=== PATIENT | male | born 1995 | race Caucasian/White ===

== ENCOUNTER 2018-11-09 00:06 | Emergency (ER) | payer MEDICAID ==
[~2018-11-09] VITALS: Ht 190.5 cm; Wt 108.6 kg
[2018-11-09 00:09] VITALS: BP 142/80
== END 2018-11-09 02:00 | disposition home or self-care (01) ==
LOC: ED 01:54
DX: J02.8 Acute pharyngitis due to other specified organisms (principal); B97.89 Other viral agents as the cause of diseases classified elsewhere; R05 Cough; F17.200 Nicotine dependence, unspecified, uncomplicated
CPT/HCPCS: 87081; 87880; 99283

== ENCOUNTER 2019-08-01 09:51 | Emergency (ER) | payer MEDICAID ==
[~2019-08-01] VITALS: Ht 193 cm; Wt 102.6 kg
[2019-08-01 09:52] VITALS: BP 134/72
--- NOTE | 2019-08-01 10:28 | NUR ---
To radiology for xray
[2019-08-01] MEDS ORDERED: IBUPROFEN 800 MG TABLET PO ONE (10:30)
[2019-08-01] MEDS ORDERED: IBUPROFEN 200 MG TABLET ONE (10:47)
[2019-08-01 10:52] LABS: RAPID INFLUENZA A Negative (Negative); RAPID INFLUENZA B Negative (Negative)
--- NOTE | 2019-08-01 10:53 | NUR ---
medicated per emar
== END 2019-08-01 11:26 | disposition home or self-care (01) ==
LOC: ED 11:20
DX: J06.9 Acute upper respiratory infection, unspecified (principal); R19.7 Diarrhea, unspecified; F17.200 Nicotine dependence, unspecified, uncomplicated
CPT/HCPCS: 71046; 87081; 87400; 87880; 99284

== ENCOUNTER 2019-12-15 15:29 | Emergency (ER) | payer MEDICAID ==
[~2019-12-15] VITALS: Ht 193 cm; Wt 107.4 kg
--- NOTE | 2019-12-15 16:06 | NUR ---
Pt to room from [facility], ambulatory with steady gait.
[2019-12-15] MEDS ORDERED: SODIUM CHLORIDE 0.9% 1,000ML IVBOLUS ONE (17:00)
[2019-12-15] MEDS ORDERED: ONDANSETRON 2MG/ML, 2ML IVPush ONE (17:00)
[2019-12-15] MEDS ORDERED: SODIUM CHLORIDE FLUSH 10ML SYR IVF ONE (17:00)
[2019-12-15] MEDS ORDERED: HYDROmorphone 2 MG/ML, 1ML IVPush PRN (17:00)
[2019-12-15] MEDS ORDERED: ONDANSETRON 2MG/ML, 2ML ONE (17:13)
[2019-12-15] MEDS ORDERED: HYDROmorphone 1 MG/ML, 1ML INJ ONE (17:13)
--- NOTE | 2019-12-15 17:17 | NUR ---
PIV PLACED, LABS COLLECTED, ICE ADDED TO LACTATE AND SENT TO LAB. MEDS ADMIN PER AUG. IVF RUNNING. SPOUSE AT BEDSIDE. OXYGENT PLACED FOR SAFETY.
[2019-12-15 17:30] LABS: BASOPHILS # (AUTO) 0.04 x10^3/uL (0-0.1); BASOPHILS % (AUTO) 1 % (0-1); EOSINOPHILS # (AUTO) 0.17 x10^3/uL (0-0.4); EOSINOPHILS % (AUTO) 3 % (1-7); LYMPHOCYTES # (AUTO) 1.27 x10^3/uL (1-3.4); LYMPHOCYTES % (AUTO) 22 % (22-44); MD NO; MEAN CORPUSCULAR HEMOGLOBIN 30.6 pg (27.5-34.5); MEAN CORPUSCULAR HGB CONC 34.5 g/dL (33.2-36.2); MEAN CORPUSCULAR VOLUME 88.6 fL (81-97); MEAN PLATELET VOLUME 7.3 fL (7.4-10.4); MONOCYTES # (AUTO) 0.37 x10^3/uL (0.2-0.8); MONOCYTES % (AUTO) 6 % (2-9); NEUTROPHILS # (AUTO) 4.05 x10^3/uL (1.8-6.8); NEUTROPHILS % (AUTO) 69 % (42-75); PLATELET COUNT 312 x10^3/uL (130-400); RED BLOOD COUNT 5.14 x10^6/uL (4.38-5.82); RED CELL DISTRIBUTION WIDTH 13.7 % (9.4-14.8)
[2019-12-15 17:31] LABS: ALANINE AMINOTRANSFERASE 147 U/L (12-78); ALBUMIN 3.8 g/dL (3.4-5.0); ANION GAP 3 mmol/L (5-15); CHLORIDE 107 mmol/L (98-107)
[2019-12-15 17:34] LABS: ALKALINE PHOSPHATASE 77 U/L (45-117); BILIRUBIN,TOTAL 0.5 mg/dL (0.2-1.0); CREATININE 0.82 mg/dL (0.7-1.3); TOTAL PROTEIN 7.1 g/dL (6.4-8.2)
[2019-12-15] MEDS ORDERED: OMNIPAQUE 350 MG/ML, 100ML BOTTLE ONE (18:09)
[2019-12-15 18:22] VITALS: BP 127/79
--- NOTE | 2019-12-15 18:22 | NUR ---
ALL RESULTS ARE BACK AT THIS TIME. CHART UP FOR RECHECK.
== END 2019-12-15 19:05 | disposition home or self-care (01) ==
LOC: ED 18:50
DX: K64.8 Other hemorrhoids (principal); K60.2 Anal fissure, unspecified; R10.32 Left lower quadrant pain; R10.31 Right lower quadrant pain
CPT/HCPCS: 36415; 74177; 80053; 83605; 85025; 96374; 96375; 99285; J1170; J2405; J7030; Q9967